=== PATIENT | male | born 1950 | race Caucasian/White ===

== ENCOUNTER 2024-07-19 13:04 | Outpatient (CLI) | payer MEDICARE, OTHER, SELFPAY ==
--- NOTE | 2024-07-19 13:15 | ECHO_ITS ---
Patient Info Name: Alexx Lucia Age: 73 years : 1950 Gender: Male Ht: 75 in Wt: 270 lbs BSA: 2.58 m2 HR: 75 bpm BP: 141 / 70 mmHg Technical Quality: Poor Exam Date: 07/19/2024 1:21 PM Exam Location: Echo Lab Patient Status: Outpatient Admit Date: 07/19/2024 Staff Ordering Physician: Khanh Morton DO Welder/Installer: Robert Stewart RDCS Attending Provider: Khanh Morton DO Referring Physician: Praveen ALFONSO; Exam Type: CA echo dop color flow w con Study Info Indications - LOCALIZED EDEMA Complete two-dimensional, color flow and Doppler transthoracic echocardiogram is performed with contrast to opacify the left ventricle and to improve the deliniation of the left ventricle endocardial borders. Contrast/Agitated Saline Contrast/Ag. Saline: Definity Amount: 2.00 ml Existing IV Access: Yes Reason for Poor Study: poor echocardiographic windows Summary 1. Technically suboptimal study due to poor sonographic images. 2. Definity contrast administered improved wall motion interpretation. 3. Left ventricular chamber dimension is normal. 4. Left ventricular systolic function is normal, estimated at 60-65%. 5. There is mild concentric increased left ventricular wall thickness. 6. The left ventricular diastolic function is grade I diastolic dysfunction. 7. E/e' 6 is not elevated. 8. The aortic root size at the sinus of Valsalva is borderline dilated at 4.0 cm. Left Ventricle E/e' 6 is not elevated. Definity contrast administered improved wall motion interpretation. Technically suboptimal study due to poor sonographic images. Left ventricular chamber dimension is normal. Left ventricular systolic function is normal, estimated at 60-65%. There is mild concentric increased left ventricular wall thickness. The left ventricular diastolic function is grade I diastolic dysfunction. Right Ventricle Right ventricular systolic function is normal and with normal TAPSE 2.3 cm. Right ventricular chamber dimension is normal. Left Atria Left atrial chamber dimension is normal. Right Atria Right atrial chamber dimension is normal. Aortic Valve The aortic valve is trileaflet. There is no aortic valve stenosis. There is no aortic valve regurgitation. Pulmonic Valve There is no pulmonic regurgitation. Mitral Valve There is no mitral valve stenosis. There is no mitral valve regurgitation. Tricuspid Valve There is no tricuspid valve regurgitation. Pericardium/Pleural There is no pericardial effusion. Inferior Vena Cava Normal inferior vena cava with >50% collapse upon inspiration consistent with normal right atrial pressure, 5 mmHg. Aorta The aortic root size at the sinus of Valsalva is borderline dilated at 4.0 cm. Left Ventricular Outflow Tract Name Value Normal LVOT 2D LVOT Diameter 2.32 cm LVOT Doppler LVOT Peak Gradient 5 mmHg LVOT Mean Gradient 3 mmHg LVOT VTI 22.30 cm LVOT VTI/AV VTI Ratio 0.76 LVOT Stroke Volume 94.23 ml LVOT CO 5.98 l/min LVOT CI 2.32 L/min/m2 Pulmonic Valve Name Value Normal RVOT Doppler RVOT Peak Gradient 4 mmHg PV Doppler PV Peak Gradient 4 mmHg Mitral Valve Name Value Normal MV Doppler MV Decel Daggett 398.78 cm/s2 MV PHT 0 s MV Area (PHT) 6.13 cm2 4.00-5.00 MV Diastolic Function MV E Peak Velocity 49.39 cm/s MV A Peak Velocity 72.95 cm/s MV E/A 0.68 MV Decel Time 0 s MV Annular TDI MV E/e' (Septal) 6.43 <=8.00 MV E/e' (Lateral) 6.08 <=8.00 MV E/e' (Average) 6.26 Tricuspid Valve Name Value Normal Estimated PAP/RSVP RA Pressure 5 mmHg <=5 Aorta Name Value Normal Ascending Aorta Ao Root Diameter (MM) 3.29 cm Ao Root Diam Index (MM) 1.28 cm/m2 Aortic Valve Name Value Normal AV Doppler AV Peak Velocity 136.22 cm/s AV Peak Gradient 7 mmHg AV Mean Gradient 5 mmHg AV VTI 29.47 cm AV Area (Cont Eq VTI) 3.20 cm2 >=3.00 AV Area (Cont Eq Carrington) 3.37 cm2 AV Regurgitation 2D LVOT Area 4.23 cm2 Ventricles Name Value Normal LV Dimensions 2D/MM IVS Diastolic Thickness (2D) 1.72 cm 0.60-1.00 LVID Diastole (2D) 4.94 cm 4.20-5.80 LVIW Diastolic Thickness (2D) 2.01 cm 0.60-1.00 LVID Systole (2D) 3.45 cm 2.50-4.00 LVOT Diameter 2.32 cm LV Mass (2D Cubed) 443.56 g 88.00-224.00 LV Mass Index (2D Cubed) 0.02 g/cm2 0.00-0.01 Relative Wall Thickness (2D) 0.82 LV Fractional Shortening/Ejection Fraction 2D/MM LV Fractional Shortening (2D) 30 % 25-43 LV EF (2D Teicholz) 57 % 52-72 LV Diastolic Volume (4C MOD) 85.82 ml LV EF (4C MOD) 51 % LV Diastolic Volume (2C MOD) 67.14 ml LV EF (2C MOD) 69 % LV Diastolic Volume (BP MOD) 77.87 ml 62.00-150.00 LV Diastolic Volume Index (BP MOD) 0.03 l/m2 0.03-0.07 LV Systolic Volume (BP MOD) 32.03 ml 21.00-61.00 LV Systolic Volume Index (BP MOD) 0.01 l/m2 0.01-0.03 LV EF (BP MOD) 59 % 52-72 LV Diastolic Length (4C) 7.32 cm LV Systolic Length (4C) 6.37 cm LV Stroke Volume (4C MOD) 43.51 ml Atria Name Value Normal LA Dimensions LA Dimension (MM) 4.32 cm 3.00-4.10 LA Volume (4C A-L) 40.77 ml LA Volume (BP A-L) 43.34 ml RA Dimensions RA Area (4C) 26.72 cm2 <=18.00 Report Signatures
--- OUTSIDE RECORDS SUMMARY | 2024-07-19 13:53 | XMS_ITS | Referral Summary ---
Author Organization [facility] Address [address] [place] [address] Care Team Providers Care Chief Catalyst Operator Name Role Phone Laure Taveras MD Primary Care Provider + Allergies No known active allergies Medications simvastatin (ZOCOR) 40 mg tablet Take 1 tablet (40 mg total) by mouth daily Active rivaroxaban (XARELTO) 20 mg tablet Take 1 tablet (20 mg total) by mouth daily Active finasteride (PROSCAR) 5 mg tablet Take 1 tablet (5 mg total) by mouth daily Active metFORMIN (GLUCOPHAGE) 500 mg tablet Take 1 tablet (500 mg total) by mouth daily with breakfast Active losartan (COZAAR) 25 mg tablet Take 1 tablet (25 mg total) by mouth daily 90 tablet 3 4 12/20/19 25 Active Active Problems Problem Noted Date Diagnosed Date Gross hematuria 07/25/2019 CRD (chronic renal disease), stage II 07/25/2019 Social History Tobacco Use Types Packs/Day Years Used Date Smoking Tobacco: Never Assessed Smokeless Tobacco: Never Alcohol Use Standard Drinks/Week Comments Yes 0 (1 standard drink = 0.6 oz pur e alcohol) socially AUDIT-C Answer Date Recorded Q1: How often do you have a drink containing alc ohol? 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 Gender Identity Male 11/11/2020 6:30 AM CDT Sexual Orientation Straight 11/11/2020 6: 30 AM CDT Last Filed Vital Signs Vital Sign Reading Time Taken Comments Blood Pressure 130/76 11/25/2022 9:26 AM CDT Pulse 67 11/25/2022 9:26 AM CDT Temperature 36.3 ??C (97.3 ??F) 11/25/2022 9:26 AM CD T Respiratory Rate - - Oxygen Saturation 92% 02/05/2016 10:56 AM CDT Inhaled Oxygen Concentration - - Weight 116.1 kg (256 lb) 11/25/2022 9:26 AM CDT Height 190.5 cm (6' 3 ) 11/25/2022 9:26 AM CDT Body Mass Index 32 11/25/2022 9:26 AM CDT Plan of Treatment Not on file Procedures Procedure Name Priority Date/Time Associated Diagnosis Comments HEPATITIS C ANTIBODY Routine 09/19/2020 CT ABDOMEN WO CONTRAST Schedule Routine, Read Routine (OP Routine) 07/30/2019 from Last 3 Months or Most Recently Relevant to Health Maintenance Results * Hepatitis C antibody (09/19/2020) Blood specimen (specimen) Historical Provider LAB MICROBIOLOGY - GENERA L ORDERABLES Final Result * CT Abdomen WO Contrast (07/30/2019) Anatomical Region Laterality Modality Body N/A Computed Tomogra phy Historical Provider IMG CT PROCEDURES Final R esult from Last 3 Months or Most Recently Relevant to Health Maintenance Insurance MEDICARE FOR LIFE Care Teams Chief Catalyst Operator Relationship Specialty Start Date End Date Laure Taveras MD PCP - General Family Medicine 07/04/19
--- OUTSIDE RECORDS SUMMARY | 2024-07-19 13:53 | XMS_ITS | Clinical Summary ---
Author Organization [facility] Address [address] [place] [address]. [place] [address] [place] [address] Care Team Providers Care Disc Pad Plate Filler Name Role Phone Dorota Cali MD Primary Care Provider [phone] Allergies No known active allergies Medications rivaroxaban 20 MG Tab tablet Take 1 tablet (20 mg total) by mouth daily with breakfast. 09/23/2020 Active finasteride 5 MG tablet Take 1 tablet (5 mg total) by mouth daily. Active metFORMIN ER 500 MG 24 hr tablet Take 1 tablet (500 mg total) by mouth daily with breakfast. Active atorvastatin (LIPITOR) 40 MG tablet 07/05/2022 Active losartan (COZAAR) 25 MG tablet Take 1 tablet (25 mg total) by mouth daily. 12/20/2023 Active Active Problems Problem Noted Date Diagnosed Date Colon cancer screening 08/26/2022 Overview (08/26/2022): Added automatically from request for surgery [id number] Numbness in both legs 07/21/2021 Gross hematuria 07/25/2019 CRD (chronic renal disease), stage II 07/25/2019 Immunizations Name Administration Dates Next Due Influenza (Generic) 04/15/2020 Influenza Adult (Generic) 05/27/2021,04/22/2018 PFIZER COVID-19 (ORIGINAL FO RMULATION, PURPLE CAP) mRNA, LNP-S, PF, 30 MCG/0.3 ML DOSE 10/14/2020 Pneumococcal (Pneumovax 23) 09/18/2020 Pneumococcal (Prevnar 20) 04/28/2022 Polio Opv (Generic) 05/26/1972 Shingrix 12/30/2020,09/18/2020 Td (TDVAX) 09/18/2020 Tdap (Generic) 01/28/2006 Family History Medical History Relation Comments Cancer Father prostate Tuberculosis Mother Relation Status Comments Father Maternal Grandfather Maternal Grandmother Mother Paternal Grandfather Paternal Grandmother Social History Tobacco Use Types Packs/Day Years Used Date Smoking Tobacco: Never Smokeless Tobacco: Never Tobacco Cessation:Counseling Given: No Comments:na Alcohol Use Standard Drinks/Week Comments Not Currently 0 (1 standard drink = 0.6 oz pur e alcohol) two drinks per month PHQ-2 Answer Date Recorded Patient Health Questionnaire-2 Score 0 01/10/2024 Education Answer Date Recorded What is the highest level of school you have completed or the highest degree you have received? Master's degree (e.g., MA, MS, Brett, MEd, POLISHING MACHINE OPERATOR HELPER, JERAMY) 08/11/2022 Sex and Gender Information Value Date Recorded Sex Assigned at Male 11/23/2021 9:44 AM CDT Legal Sex Male 5:48 PM CDT Gender Identity Male 11/23/2021 9:44 AM CDT Sexual Orientation Straight 11/23/2021 9: 44 AM CDT Last Filed Vital Signs Vital Sign Reading Time Taken Comments Blood Pressure 128/71 01/10/2024 8:06 AM CDT Pulse 77 01/10/2024 8:06 AM CDT Temperature 36.8 ??C (98.3 ??F) 01/10/2024 8:06 AM CD T Respiratory Rate 14 03/31/2023 8:13 AM CDT Oxygen Saturation 94% 01/10/2024 8:06 AM CDT Inhaled Oxygen Concentration - - Weight 123.3 kg (271 lb 14.4 oz) 01/10/2024 8:06 AM CDT Height 190.5 cm (6' 3 ) 01/10/2024 8:06 AM CDT Body Mass Index 33.99 01/10/2024 8:06 AM CDT Plan of Treatment Upcoming Encounters Date Type Department Care Team (Late st Contact Info) Description 10/15/2024 8:40 AM CDT Office Visit [facility] Multispecialty Care - [facility] [address] [facility], [address] [place] [id number] Lai Scott MD [address] [place] [address] Health Maintenance Due Date Last Done Comments Hepatitis C 11/04/1968 Annual Medicare Wellness Visit 2014 COVID-19 Vaccine (2023-2 5 season) 2024 06/05/2021, 11/05/2020, 10/14/2020 Influenza Adult (#1) 2024 05/27/2021, 04/15/2020, 04/22/2018 PHQ-2 (Physician [place]) 06/20/2024 01/10/2024 RSV Immunization or 60+ Years (1 - 1-dose 75+ series) 2024 PHQ-2 (Physician [place]) 01/09/2025 01/10/2024 DTaP, Tdap and Td Vaccines ( 3 - Td or Tdap) 09/18/2030 09/18/2020, 01/28/2006 Colorectal Cancer Screening Colonoscopy (10 Years) 09/09/2032 09/09/2022, 09/09/2022 Zoster Vaccines Completed 12/30/2020, 09/18/2020 Pneumococcal Vaccine: 65+ Years Completed 04/28/2022, 09/18/2020 Meningococcal B Vaccine Aged Out No l onger eligible based on patient's age to complete this topic Meningococcal Vaccine Aged Out No harrison breanna eligible based on patient's age to complete this topic RSV Immunizations Under 20 Months Aged Out No longer eligible b ased on patient's age to complete this topic Procedures Procedure Name Priority Date/Time Associated Diagnosis Comments COLONOSCOPY Routine 09/09/2022 7:19 AM CDT from Last 3 Months or Most Recently Relevant to Health Maintenance Insurance [employer] MEDICARE Care Teams Disc Pad Plate Filler Relationship Specialty Start Date End Date Dorota Cali MD PCP - General FAMILY PRACTICE 08/25/21
--- OUTSIDE RECORDS SUMMARY | 2024-07-19 13:53 | XMS_ITS | Encounter Summary ---
Author Organization [facility] Address [address] [place] [address]. [place] [address] [place] [address] Care Team Providers Care Building Guard Deputy Sheriff Name Role Phone Dorota Cali MD Primary Care Provider [phone] Encounter Details Date Type Department Care Team (Late Contact Info) Description [address] [facility] Multispecialty Care - [address], [address] [place] [address] [employer], [facility] Provider Results Social History Tobacco Use Types Packs/Day Years Used Date Smoking Tobacco: Never Smokeless Tobacco: Never Alcohol Use Standard Drinks/Week Comments Yes 0 (1 standard drink = 0.6 oz pur e alcohol) two drinks per month PHQ-2 Answer Date Recorded PHQ-2 Score - If the patient scores above 3, please move on to questions 3-9 0 11/02/2021 Sex and Gender Information Value Date Recorded Sex Assigned at Male 11/23/2021 9:44 AM CDT Legal Sex Male 5:48 PM CDT Gender Identity Male 11/23/2021 9:44 AM CDT Sexual Orientation Straight 11/23/2021 9: 44 AM CDT COVID-19 Exposure Response Date Recorded In the last 10 days, have yo u been in contact with someone who was confirmed or suspected to have Coronavirus/COVID-19? No / Unsure 11/02/2021 1:31 PM CDT documented as of this encounter Plan of Treatment Upcoming Encounters Date Type Department Care Team (Late Contact Info) Description 10/15/2024 8:40 AM CDT Office Visit [facility]ialty Care - [facility] [address] [facility], [address] [place] [address] Lai Scott MD [address] [place] [address] documented as of this encounter Visit Diagnoses Not on filedocumented in this encounter Care Teams Building Guard Deputy Sheriff Relationship Specialty Start Date End Date Dorota Cali MD PCP - General FAMILY PRACTICE 08/25/21 documented as of this encounter
--- OUTSIDE RECORDS SUMMARY | 2024-07-19 13:53 | XMS_ITS | Encounter Summary ---
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 us Historical Provider Final Res ult documented in this encounter Visit Diagnoses Not on filedocumented in this encounter Care Teams Automotive Service Advisor Relationship Specialty Start Date End Date Laure Taveras MD PCP - General Family Medicine 07/04/19 documented as of this encounter
--- OUTSIDE RECORDS SUMMARY | 2024-07-19 13:53 | XMS_ITS | Continuity of Care Document ---
Author Organization [facility] Address [address] [place] [phone] Phone Care Team Providers Care Bender Machine Operator Name Role Phone Efraín Serrano MD Unavailable Unavailable Procedures Procedure Date OFFICE CONSULTATION OFFICE CONSULTATION OPHTHALMIC BIOMETRY LT OPHTHALMIC BIOMETRY OPHTH DX IMAGING POST SEG OPHTH DX IMAGING POST SEG OPHTHALMIC BIOMETRY RT Advance Directives Directive Yes / No Effective Date File Name No Information Encounters Encounter Description Practice Location Reason(s) For Visit Diagnoses Date Provider Providers Copied on Encounter OFFICE CONSULTATION [facility], [address] [place] [address], [address] [place] [address], tel:[phone] OPH CONSULT PHIL LIANG No Information [address] Zach Efraín. [address] [place] [address], [facility] [address], [place], [facility], . tel:[phone] [facility], [address] [place] [address], [address] [place] [address], tel:[phone] OPH CONSULT PHIL LIANG No Information [address] Zach Efraín. [address] [place] [address], [place], [facility], . tel:[phone] Family History Family Member Type Diagnosis Age At Onset No Information Payers Payer name Insurance type Covered republican ID Authoriza tion(s) For Life CI [id number] Social History Type Description Quantity Date Captured Comments Sex Male Smoking Status No Information Chief Complaint And Reason For Visit No Information Plan Of Treatment Date Type Action Status No Information History Of Present Illness Encounter Date Complaint History Of Prese nt Illness No Information Instructions Date Instruction Additional Infor mation No Information Assessments Type Assessment Date No Information
--- OUTSIDE RECORDS SUMMARY | 2024-07-19 13:53 | XMS_ITS | Clinical Summary ---
Author Organization [facility] Address [address] [place] [address] Care Team Providers Care Teacher Of The Deaf Name Role Phone Laure Taveras MD Primary [...] CRD (chronic renal disease), stage II 07/25/2019 Surgical History Surgery Date Site/Laterality Comments VASECTOMY Medical History Medical History Date Comments Elevated serum creatinine Hyperlipidemia DVT (deep venous thrombosis) (CMS/HCC) (HCC) 200 , Family History Medical History Relation Name Comments Prostate cancer Father Glaucoma Mother Relation Name Status Comments Father Mother Social History Tobacco Use Types Packs/Day Years [...] on file Legal 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 Gender Identity Male 11/11/2020 6:30 AM CDT Sexual Orientation Straight 11/11/2020 6: 30 AM CDT Obstetrics History Last Filed Vital Signs Vital Sign Reading [...] 11/25/2022 9:26 AM CDT Plan of Treatment Health Maintenance Due Date Last Done Comments Colon Cancer Screening-Colonoscopy 1950 Depression Screening 1950 Fall Risk Assessment 1950 Prostate Cancer Screening-PSA 1950 DTaP/Tdap/Td Vaccine (1 - Tdap) 1960 Hepatitis B Screening 11/04/1967 Zoster Vaccine (1 of 2) 11/04/1999 Well Visit 65+ 2014 Pneumococcal vaccine 65+ (2 of 2 - PCV) 09/18/2021 0 09/18/2020 Covid-19 Vaccine (2 - 2023- season) 2024 Influenza Vaccine (#1) 2024 Abdominal Aortic Aneurysm (AAA) Screen Completed Hepatitis C Screening Completed 09/19/2020 Procedures Procedure Name Priority Date/Time Associated Diagnosis Comments HEPATITIS C ANTIBODY Routine 09/19/2020 CT ABDOMEN WO CONTRAST Schedule Routine, Read Routine (OP Routine) 07/30/2019 from Last 3 Months or Most Recently Relevant to Health Maintenance Results * Hepatitis C antibody (09/19/2020) Blood specimen (specimen) us Historical Provider LAB MICROBIOLOGY - GENERA L ORDERABLES Final Result * CT Abdomen WO Contrast (07/30/2019) Anatomical Region Laterality Modality Body N/A Computed Tomogra phy us Historical Provider IMG CT PROCEDURES Final R esult from Last 3 Months or Most Recently Relevant to Health Maintenance Insurance MEDICARE enrich-in FOR LIFE Care Teams Teacher Of The Deaf Relationship Specialty Start Date End Date Laure Taveras MD PCP - General Family Medicine 07/04/19
[2024-07-19] MEDS: PERFLUTREN LIPID MICROSPHERES 1.5 ML VIAL DILUTED TO 10 ML TOTAL VOLUME IV PUSH (13:55)
--- NOTE | 2024-07-19 14:27 | IVDEFINITY ---
Prior to administration of IV Definity the patient was educated on the risks and benefits of the imaging enhancing agent including potential adverse side effects. The patient verbalized understanding. Allergies were verified. No exclusion criteria were identified and at least one of the following inclusion criteria were met: 1) physician request, 2) patient technically difficult to image (per the [place] Society of Echocardiography guidelines of two or more segments not discernable within the apical view), or 3) questionable left ventricular function. ?
== END 2024-07-19 13:05 | disposition home or self-care (01) ==
LOC: ANHCARD 13:07
PROVIDERS: Visit Provider Internal Medicine Cardiovascular Disease
DX: R60.0 Localized edema (principal)
CPT/HCPCS: C8929; Q9957

== ENCOUNTER 2024-10-02 09:28 | Outpatient (CLI) | payer MEDICARE, OTHER, SELFPAY ==
--- NOTE | ~2024-10-02 | US_ITS ---
EXAMINATION: US art doppler w press LE DATE: 10/03/2024 08:01 CDT INDICATION: Peripheral vascular disease. TECHNIQUE: Segmental pressures and plethysmographic and Doppler waveforms of the brachial and lower e xtremity arteries were obtained. COMPARISON: None. FINDINGS: Right and left brachial artery pressures of 131 mm Hg and 128 mm Hg, respectively, are concordant (no rmal difference <= 30 mmHg). The right high-thigh pressure index is 1.24 (normal > 1.2). The right ankle-brachial index (CARLA) is 1 .11 (normal >= 0.9-1.0). The right great toe-brachial index (TBI) is 0.52 (normal >= 0.60). The right lower extremity segmental pressure gradients are increased below the ankle (normal gradients <= 20-3 0 mmHg between adjacent levels on the same leg or the same levels on the two legs). Arterial Doppler waveforms are biphasic in the right lower extremity arteries with the exception of monophasic flow in the posterior tibial artery.. The left high-thigh pressure index is 1.27. The left CARLA is 1.19. The left TBI is 0.37. The left lowe r extremity segmental pressure gradients are increased below the ankle. Arterial Doppler waveforms ar e biphasic in the left common femoral artery and monophasic in the remainder of the left lower extrem ity arteries.. IMPRESSION: 1. Diminished bilateral toe brachial indices consistent with peripheral arterial disease, left greate r than right. Reviewed, dictated and finalized at location B. IMPRESSION: 1. Diminished bilateral toe brachial indices consistent with peripheral arteria l disease, left greater than right.
--- OUTSIDE RECORDS SUMMARY | 2024-10-02 10:03 | XMS_ITS | Clinical Summary ---
Author Organization [facility] Address [address] [place] [address] Care Team Providers Care Division Sales Manager Name Role Phone Dorota Cali MD Primary Care Provider [phone] Allergies No known active allergies Medications rivaroxaban [...] (08/26/2022): Added automatically from request for surgery [id number] Numbness in both legs 07/21/2021 Gross hematuria 07/25/2019 CRD (chronic renal disease), stage II 07/25/2019 Immunizations Immunization Administration Dates Next Due Influenza (Generic) 04/15/2020 [...] Master's degree (e.g., MA, MS, Brett, MEd, ETHOLOGIST, JERAMY) 08/11/2022 Sex and Gender Information Value Date Recorded Sex Assigned at Male 11/23/2021 9:44 AM CDT Legal Sex Male 5:48 PM CDT Gender Identity Male 11/23/2021 9:44 AM CDT Sexual Orientation Straight 11/23/2021 9: 44 AM CDT Last Filed Vital Signs Vital Sign Reading Time Taken Comments Blood Pressure 128/71 01/10/2024 8:06 AM CDT Pulse 77 01/10/2024 8:06 AM CDT Temperature 36.8 C (98.3 F) 01/10/2024 8:06 AM CDT Respiratory Rate 14 03/31/2023 8:13 AM CDT [...] Description 10/15/2024 8:40 AM CDT Office Visit [facility]ialty Care [facility] [address] [facility], [address] [place] [id number] Lai Scott MD [address] [place] [address] Health Maintenance Due Date Last Done Comments Hepatitis C 11/04/1968 Annual Medicare Wellness Visit 2014 COVID-19 Vaccine (4 - 2023-2 5 season) 2024 06/05/2021, 11/05/2020, 10/14/2020 PHQ-2 (Physician [place]) 06/20/2024 01/10/2024 RSV Immunization or 60+ Years (1 - 1-dose 75+ series) 2024 DTaP, Tdap and Td Vaccines ( 3 - Td or Tdap) 09/18/2030 09/18/2020, 01/28/2006 Colorectal Cancer Screening Colonoscopy (10 Years) 09/09/2032 09/09/2022, 09/09/2022 Zoster Vaccines Completed 12/30/2020, 09/18/2020 Pneumococcal Vaccine: 50+ Years Completed 04/28/2022, 09/18/2020 Meningococcal B Vaccine [...] Most Recently Relevant to Health Maintenance Insurance [employer] Care Teams Division Sales Manager Relationship Specialty Start Date End Date Dorota Cali MD PCP - General FAMILY PRACTICE 08/25/21
--- OUTSIDE RECORDS SUMMARY | 2024-10-02 10:03 | XMS_ITS | Continuity of Care Document ---
Author Organization [facility] Address [address] [place] [id number] Phone Care Team Providers Care Energy Technician Name Role Phone Efraín Serrano MD Unavailable [...] Copied on Encounter OFFICE CONSULTATION [facility], [address] [place] [address], [address] [place] [address], tel:[phone] OPH CONSULT PHIL LIANG No Information [address] Zach Efraín. [address] [place] [address], [facility] [address], [place], [facility], . tel:[phone] [facility], [address] [place] [address], [address] [place] [address], tel:[phone] OPH CONSULT PHIL LIANG No Information 3200 [address] Zach Efraín. [address] [place] [address], [place], [place], [facility], [place]. tel:[phone] Family History Family Member Type Diagnosis Age At Onset No Information Payers Payer name Insurance type Covered constitution party ID Authoriza tion(s) For Life CI [id number] Social History Type Description Quantity Date Captured Comments Sex Male Smoking Status No Information Chief Complaint And Reason For Visit No Information Reason For Referral Reason For Referral No Information History Of Present Illness Encounter Date Complaint History Of Prese nt Illness No Information Functional Status Date Functional Assessmen t No Information Instructions Date Instruction Additional Infor mation No Information Assessments Type Assessment Date No Information Patient Care Teams Name Effective Dates (start - stop) Status Members No Information
--- OUTSIDE RECORDS SUMMARY | 2024-10-02 10:03 | XMS_ITS | Encounter Summary ---
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
--- OUTSIDE RECORDS SUMMARY | 2024-10-02 10:03 | XMS_ITS | Clinical Summary ---
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 [employer] Gender Identity Male 11/11/2020 6:30 AM CDT Sexual Orientation Straight 11/11/2020 6: 30 AM CDT Obstetrics History Last Filed Vital Signs Vital Sign Reading Time Taken Comments Blood Pressure 130/76 11/25/2022 9:26 AM CDT Pulse 67 11/25/2022 9:26 AM CDT Temperature 36.3 C (97.3 F) 11/25/2022 9:26 AM CDT Respiratory Rate - - Oxygen Saturation 92% [...] 09/18/2021 0 09/18/2020 Covid-19 Vaccine (2 - season) 2024 Influenza Vaccine (#1) 2024 Abdominal [...] Recently Relevant to Health Maintenance Insurance MEDICARE [employer] Care Teams Retail Cosmetics Sales Counter Manager Relationship Specialty Start Date End Date Laure Taveras MD PCP - General Family Medicine 07/04/19
--- OUTSIDE RECORDS SUMMARY | 2024-10-02 10:03 | XMS_ITS | Referral Summary ---
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
--- OUTSIDE RECORDS SUMMARY | 2024-10-02 10:03 | XMS_ITS | Continuity of Care Document ---
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 It does not include entries that were removed or entered in error. 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 Medication Details Route Status Patient Instructions Prescription Expires Prescription Number Last Dispense Date Ordering Provider Order Date Order Qty Source amoxicillin 500 mg capsule 2000 mg, Oral, # 4 EA, 0 total refill(s ), Hard Stop Oral (given by mouth) Discont inued 04/26/2024 3 2023 4.0 Ambulat ory Pharmac y apixaban 5 mg oral tablet See Instruct ions, Take two tablets by mouth twice daily for 7 days, then take one tablet by mouth twice daily, # 74 tab(s), 3 total refill(s ), Maintena nce, Initial dosing for treatmen t of DVT/PE (74 tabs = 30 day supply) no refills! , Pharmacy : [facility] Ordered 5 2023 74.0 6130C-A f-C-375 [facility] atorvastati n 40 mg oral tablet 1 tab(s), Oral, Daily, Take on tab daily for choleste rol, # 90 tab(s), 3 total refill(s ), Hard Stop, Pharmacy : [facility] Oral (given by mouth) Complet ed 04/26/2024 4 2023 90.0 6130C-A f-C[facility] atorvastati n 40 mg oral tablet 1 tab(s), Oral, Daily, Take on tab daily for choleste rol, # 90 tab(s), 3 total refill(s ), Mainrichaa lae, Pharmacy : [facility] Oral (given by mouth) Ordered 5 2023 90.0 6130C-A f-C-[facility] [place] atorvastati n 40 mg tablet See Instruct ions, # 90 EA, 1 total refill(s ), Acute Complet ed 04/19/2023 3 2022 90.0 Ambulat ory Pharmac y chlorhexidi ne oral rinse 0.12% liquid [473mL] See Instruct ions, 0, # 473 mL, 0 total refill(s ), Hard Stop Complet ed 02/01/2024 3 2023 473.0 Ambulat ory Pharmac y Clenpiq 10 mg-3.5 g-12 g/160 mL oral liquid 320 unknown unit, 0 total refill(s ), Soft Stop Ordered 2022 6130[facility]A f-C[facility] Clenpiq oral liquid 1 Unknown, ORAL, 1 Refill(s ), 0 total refill(s ), Soft Stop Discont inued 04/26/20242023 6130[facility] f-C-[facility] clobetasol 0.05% topical ointment APPLY TO AFFECTED AREAS TWICE DAILY, THEN WEAN-OFF . AVOID APPLICAT ION ON FACE AND GROIN., # 60 g, 3 total refill(s ), Acute Complet ed 08/03/2023 3 2023 60.0 Ambulat ory Pharmac y finasteride 5 mg tablet 5 mg, Oral, Daily, # 60 EA, 0 total refill(s ), Hard Stop Oral (given by mouth) Complet ed 12/22/2023 3 2023 60.0 Ambulat ory Pharmac y finasteride 5 mg tablet 5 mg, Oral, Daily, # 90 EA, 3 total refill(s ), Hard Stop Oral (given by mouth) Complet ed 02/14/2024 4 2023 90.0 Ambulat ory Pharmac y finasteride 5 mg tablet 5 mg, Oral, Daily, # 90 EA, 3 total refill(s ), Hard Stop Oral (given by mouth) Ordered 02/20/2025 5 2024 90.0 Ambulat ory Pharmac y losartan 25 mg tablet 25 mg, Oral, Daily, # 90 EA, 3 total refill(s ), Hard Stop Oral (given by mouth) Complet ed 12/20/2023 4 2023 90.0 Ambulat ory Pharmac y losartan 25 mg tablet 25 mg, Oral, Daily, # 90 EA, 3 total refill(s ), Hard Stop Oral (given by mouth) Ordered 12/19/2024 5 2024 90.0 Ambulat ory Pharmac y MetFORMIN (Eqv-Fortam et) 500 mg oral tablet, extended release 1 tab(s), Oral, Daily, # 90 EA, 3 total refill(s ), Hard Stop, Pharmacy : [facility] Oral (given by mouth) Complet ed 04/05/2024 4 2023 90.0 6130C-A f-C-375 Th [facility] MetFORMIN (Eqv-Fortam et) 500 mg oral tablet, extended release 1 tab(s), Oral, Daily, # 90 tab(s), 3 total refill(s ), Maintena lae, Pharmacy : [facility] Oral (given by mouth) Ordered 5 2023 90.0 6130C-A f-C-375 Th [facility] MetFORMIN (Eqv-Fortam et) 500 mg oral tablet, extended release 1 tab(s), Oral, Daily, # 30 tab(s), 0 total refill(s ), Hard Stop, Pharmacy : [facility] Oral (given by mouth) Complet ed 04/26/2024 4 2023 30.0 6130C[facility]A f[facility] MetFORMIN (Eqv-Fortam et) 500 mg oral tablet, extended release 1 tab(s), Oral, Daily, # 30 EA, 0 total refill(s ), Maintena nce, Pharmacy : [facility] Oral (given by mouth) Discont inued 02/03/2023 3 2022 30.0 6130C-A f-C-375 [facility] Periogard 0.12% (AF) liquid [473mL] See Instruct ions, # 473 mL, 0 total refill(s ), Hard Stop Complet ed 07/12/2024 4 2024 473.0 Ambulat ory Pharmac y rivaroxaban 20 mg oral tablet 1 tab(s), Oral, every evening, with evening meal, # 90 tab(s), 3 total refill(s ), Maintena nce, with evening meal, Pharmacy : [facility] Oral (given by mouth) Cancele d 05/23/2024 4 2023 90.0 6130C-A f-C-375 [facility] rivaroxaban 20 mg oral tablet 1 tab(s), Oral, every evening, with evening meal, # 90 tab(s), 3 total refill(s ), Hard Stop, with evening meal, Pharmacy : [facility] Oral (given by mouth) Complet ed 04/26/2024 4 2023 90.0 6130C-A f-C-375 [facility] triamcinolo ne 0.1% ointment [454g] See dose instruct ions in comments , # 454 g, 3 total refill(s ), Acute Complet ed 02/04/2023 3 2022 454.0 Ambulat ory Pharmac y warfarin 2.5 mg oral tablet 1 tab(s), Oral, Daily, Use as directed by [facility] or prescrib ing provider ., # 30 tab(s), 0 total refill(s ), [facility], Pharmacy : [facility] Oral (given by mouth) Discont inued 05/16/2024 4 2023 30.0 6130C-A f-C-[facility] [place] warfarin 3 mg oral tablet 1 tab(s), Oral, Daily, Use as directed by [facility] Clinic or prescrib ing provider , # 30 tab(s), 0 total refill(s ), [facility], Pharmacy : [facility] Oral (given by mouth) Discont inued 05/22/2024 4 2023 30.0 6130C-A f-C-[facility] [place] warfarin 4 mg oral tablet 1 tab(s), Oral, Daily, Use as directed by [facility]madin Clinic or prescrib ing provider , # 30 tab(s), 0 total refill(s ), [facility], Pharmacy : [facility] Oral (given by mouth) Discont inued 06/18/2024 4 2023 30.0 6130C-A f-C-375 [facility] [place] Xarelto 20 mg tablet See dose instruct ions in comments , # 90 EA, 2 total refill(s ), Acute Complet ed 04/19/2023 3 2022 90.0 Ambulat ory Pharmac y Immunizations Combined list of available immunizations from the Department of Defense and Veterans Affairs facilities. 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 Comments Source influenza virus vaccine, inactivated 2022 ETHANJPOCKLIN GTON Shoul smooth, right (delt oid) [id number] 197 sanofi pasteur complet ed influenza virus vaccine, inactivat ed 04/06/23 Given 5C-3 [facility] pneumococcal 20-valent conjugate vaccine 2021 ETHANJPOCKLIN GTON [id number] complet ed Result Comment: Route: Intramusc ular(IM) Manufactu rer: Pfizer, Inc (PFR) 0055C-[facility] COVID Vaccine Pfizer 2020 zzRig ht Arm [id number] 208 PFIZER complet ed COVID Vaccine Pfizer 06/05/21 Given Ambulat ory Pharmac y influenza, injectable, quadrivalent- pf 2020 zzLef t Arm [id number] 150 GlaxoSmithKli ne complet ed influenza , injectabl e, quadrival ent-pf 05/27/21 Given Ambulat ory Pharmac y zoster vaccine, inactivated 2020 zzRig ht Arm [id number] 187 GlaxoSmithKli ne complet ed zoster vaccine, inactivat ed 12/30/20 Given Ambulat ory Pharmac y COVID Vaccine Pfizer 2020 TRANSCR IBED 208 PFIZER complet ed COVID Vaccine Pfizer 11/05/20 Given Ambulat ory Pharmac y COVID Vaccine Pfizer 2020 TRANSCR IBED 208 PFIZER complet ed COVID Vaccine Pfizer 10/14/20 Given Ambulat ory Pharmac y pneumococcal polysaccharid e, 23 valent 2020 zzRig ht Arm [id number] [employer] complet ed pneumococ jayna polysacch aride, 23 valent 09/18/20 Given Ambulat ory Pharmac y tetanus-dipht h toxoids (Td) adult/adol 2020 zzRig ht Arm [id number] sanofi pasteur complet ed tetanus-d iphth toxoids (Td) adult/ado l 09/18/20 Given Ambulat ory Pharmac y zoster vaccine, inactivated 2020 zzLef t Arm [id number] 187 GlaxoSmithKli ne complet ed zoster vaccine, inactivat ed 09/18/20 Given Ambulat ory Pharmac y influenza virus vaccine, inactivated 2019 zzRig ht Arm [id number] 88 Seqirus complet ed influenza virus vaccine, inactivat ed 04/15/20 Given Ambulat ory Pharmac y influenza, injectable, quadrivalent- pf 2017 zzLef t Arm [id number] 150 GlaxoSmithKli ne complet ed influenza , injectabl e, quadrival ent-pf 04/22/18 Given Ambulat ory Pharmac y tetanus, diphtheria, acellular pertu is 2005 zzLef t Arm [id number] 115 complet ed tetanus, diphtheri a, acellular pertussis 01/28/06 Given Ambulat ory Pharmac y tuberculin purified protein derivative 2000 zzLef t Arm [id number] 96 [facility] ed Patient Tolerance : Negative Ambulat ory Pharmac y poliovirus vaccine, live, oral 1971 zzLef t Arm 02 complet ed polioviru s vaccine, live, oral 05/26/72 Given Ambulat ory Pharmac y Results Combined list of recent chemistry, hematology and other laboratory results from Department of Defense and Veterans Affairs, ranging from 15 months to all on record, depending upon the facility. Order Name Results Value Reference Range Date Interpretation Specimen Comments Source Coagulati on INR LC 1.3 06/15 H Result Comment: Reference interval is for non-anticoa gulated patients. Suggested INR therapeutic range for Vitamin K antagonist therapy: Standard Dose (moderate intensity therapeutic range): 2.0 - 3.0 Higher intensity therapeutic range 2.5 - 3.5 0055A[facility] Coagulati on Prothrombin Time LC 14.0 s 06/15 H Result Comment: Performed At: [address] [id number] Celia Rousseau PhD Ph:[phone] 0055A-3 [facility] Coagulati on Prothrombin Time LC 15.2 s 05/28 H Result Comment: Performed At: [address] [id number] Celia Rousseau PhD Ph:[phone] 00 0055A-3 [facility] Coagulati on INR LC 1.4 05/28 H Result Comment: Reference interval is for non-anticoa gulated patients. Suggested INR therapeutic range for Vitamin K antagonist therapy: Standard Dose (moderate intensity therapeutic range): 2.0 - 3.0 Higher intensity therapeutic range 2.5 - 3.5 0055A-3 [facility] [place] Coagulati on INR LC 1.5 05/21 H Result Comment: Reference interval is for non-anticoa gulated patients. Suggested INR therapeutic range for Vitamin K antagonist therapy: Standard Dose (moderate intensity therapeutic range): 2.0 - 3.0 Higher intensity therapeutic range 2.5 - 3.5 0055A-3 [facility] Coagulati on Prothrombin Time LC 16.0 s 05/21 H Result Comment: Performed At: 01 [facility] [address] [place], [place] [id number] Celia Rousseau PhD Ph:[phone] [place] [address] [place] Coagulati on INR LC 1.4 0.9 - 1.2 05/15 H Result Comment: Reference interval is for non-anticoa gulated patients. Suggested INR therapeutic range for Vitamin K antagonist therapy: Standard Dose (moderate intensity therapeutic range): 2.0 - 3.0 Higher intensity therapeutic range 2.5 - 3.5 -[address] [place] [address] [place] Coagulati on Prothrombin Time LC 15.0 s 9.1 - 12.0 05/15 H Result Comment: Performed At: [facility] [address] [place], [place] [id number] Celia Rousseau PhD Ph:[phone] [address] [place] [address] Chemistry Sodium 143 mmol/L 136 - 145 05/11 N 0055A-[address] [place] [address] Chemistry Potassium Lvl 4.3 mmol/L 3.5 - 5.1 05/11 N 0055A-[address] [place] [address] Chemistry Chloride 105 mmol/L 98 - 107 05/11 N 0055A-[address] [place] [address] Chemistry Calcium 9.5 mg/dL 8.4 - 10.2 05/11 N 0055A-[address] [place] [address] Chemistry Glucose Lvl 104 mg/dL 74 - 99 05/11 H 5A-[address] [place] [address] Chemistry Creatinine Level 0.90 mg/dL 0.72 - 1.25 05/11 N 0055A-[address] [place] [address] Chemistry CO2 29 mmol/L - 05/11 N 0055A-[address] [place] [address] Chemistry BUN/Creat Ratio 18 mg/dL 12 - 05/11 N 0055A-[address] [place] [address] Chemistry BUN 16 mg/dL - 05/11 N 0055A-[address] [place] [address] Chemistry AGAP 9.00 0.00 - 15.00 05/11 N 0055A-[address] [place] [address] Chemistry eGFR CKD EPI 90 mL/min/1 .73_m2 05/11 Interpretiv e Data: Estimated Glomerular Filtration Rate (eGFR) calculated using the 2020 Chronic Kidney Disease-Epi demiology (CKD-EPI) Collaborati on creatinine equation; units of measure are mL/min/1.73 m2. Results are only valid for adults (>=18 years) whose serum creatinine is in steady state. eGFR calculation s are not valid for patients with acute kidney injury and for patients on dialysis. Creatinine- based estimates of kidney function may also be inaccurate in patients with reduced creatinine generation due to decreased muscle mass (e.g., malnutritio n, severe hypoalbumin emia, sarcopenia, chronic neuromuscul ar disease, amputations , severe heart failure or liver disease) and in patients with increased creatinine generation due to increased muscle mass (e.g., muscle builders, anabolic steroids) or increased dietary intake. CKD is diagnosed based on abnormaliti es of kidney structure or function, present for >3 months, with implication s for health and disease. CKD is classified and staged based on cause, eGFR and albuminuria (quantified as urine albumin to creatinine ratio). An eGFR >60 mL/min/1.73 m2 in the absence of increased urine albumin excretion or structural abnormaliti es does not CKD. eGFR provides only an estimate of measured GFR within +/- 30% for most patients. As mentioned, nutritional status and muscle mass, among many factors, may lead to inaccuracy in the estimate. Consider ordering the creatinine- cystatin C panel if better accuracy is needed for clinical decision-artur laureano. eGFR (mL/min/1.7 3 m2) CKD stage Interpretat ion Normal 60-89 Mild decrease 45-59 Mild to moderate decrease 30-44 Moderate to severe decrease 15-29 Severe decrease <15 Kidney failure 5A-[address] [place], [place] [address]KAT[facility] Colon Coagulati on aPTT. LC 40 s 24 - 33 05/11 H Result Comment: This test has not been validated for monitoring unfractiona all heparin therapy. aPTT-based therapeutic ranges for unfractiona all heparin therapy have not been established . For general guidelines on Heparin monitoring, refer to the [facility] Directory of Services. Performed At: [address] [id number] Celia Rousseau PhD Ph:[phone] 5A-[address] [place], [place] [address]KATELYNN Colon Coagulati on INR LC 1.3 0.9 - 1.2 05/11 H Result Comment: Reference interval is for non-anticoa gulated patients. Suggested INR therapeutic range for Vitamin K antagonist therapy: Standard Dose (moderate intensity therapeutic range): 2.0 - 3.0 Higher intensity therapeutic range 2.5 - 3.5 -3 [facility] Coagulati on Prothrombin Time LC 14.3 s 9.1 - 12.0 05/11 H Result Comment: Performed At: [address] [id number] Celia Rousseau PhD Ph:[phone] 00 - [facility] Chemistry Ur Creat 117 mg/dL 04/19-3 [facility] Chemistry Ur Microalb/Ur Creat Ratio 7 mg/gCr 04/19 N - [address] [place] [address] Chemistry Ur Microalbumi n 8 mg/L 04/19 N Interpretiv e Data: To minimize intra-indiv idual variation, analysis of three random urine samples collected over the course of a week has also been recommended . [facility] Chemistry eGFR CKD EPI 90 mL/min/1 .73_m2 04/19 Interpretiv e Data: Estimated Glomerular Filtration Rate (eGFR) calculated using the 2020 Chronic Kidney Disease-Epi demiology (CKD-EPI) Collaborati on creatinine equation; units of measure are mL/min/1.73 m2. Results are only valid for adults (>=18 years) whose serum creatinine is in steady state. eGFR calculation s are not valid for patients with acute kidney injury and for patients on dialysis. Creatinine- based estimates of kidney function may also be inaccurate in patients with reduced creatinine generation due to decreased muscle mass (e.g., malnutritio n, severe hypoalbumin emia, sarcopenia, chronic neuromuscul ar disease, amputations , severe heart failure or liver disease) and in patients with increased creatinine generation due to increased muscle mass (e.g., muscle builders, anabolic steroids) or increased dietary intake. CKD is diagnosed based on abnormaliti es of kidney structure or function, present for >3 months, with implication s for health and disease. CKD is classified and staged based on cause, eGFR and albuminuria (quantified as urine albumin to creatinine ratio). An eGFR >60 mL/min/1.73 m2 in the absence of increased urine albumin excretion or structural abnormaliti es does not CKD. eGFR provides only an estimate of measured GFR within +/- 30% for most patients. As mentioned, nutritional status and muscle mass, among many factors, may lead to inaccuracy in the estimate. Consider ordering the creatinine- cystatin C panel if better accuracy is needed for clinical decision-artur laureano. eGFR (mL/min/1.7 3 m2) CKD stage Interpretat ion Normal 60-89 Mild decrease 45-59 Mild to moderate decrease 30-44 Moderate to severe decrease 15-29 Severe decrease <15 Kidney failure 0055A-[facility] Hematolog y Basophil % Auto 0.1 % 0.0 - 2.5 04/19 N [facility] Baso Absolute 0.0 x10^3/mc L 0.0 - 0.1103 04/19 N [facility]55A-[facility]olog [facility] Monocyte % Auto 7 % 1 - 12 04/19 N 0055A-[facility]olog [facility] Neutro Absolute 4.9 x10^3/mc L 2.0 - 7.0103 04/19 N 0055A-[facility] H[facility]olog [facility] Neutrophil % Auto 67.8 % 46.0 - 77.0 04/19 N 0055A-[facility] Lymphocyte % Auto 23.2 % 20.0 - 40.0 04/19 N 0055A-[facility] Eos Absolute 0.1 x10^3/mc L 0.0 - 0.7103 04/19 N 0055A-[facility] Eosinophil % Auto 1 % 0 - 5 04/19 N 0055A-[facility] [facility] Long Absolute 0.5 x10^3/mc L 0.2 - 0.8103 04/19 N 0055A-3 [facility] Lymph Absolute 1.7 x10^3/mc L 1.2 - 4.0103 04/19 N 0055A-[facility] WBC 7.3 x10^3/mc L 4.0 - 11.0103 04/19 N 0055A-3 [facility]olog [facility] MPV 10.3 fL 7.4 - 10.4 04/19 N 0055A-3 [facility] Hematolog [facility] RDW 14.6 % 11.0 - 14.9 04/19 N 0055A-3 [facility] Hematolog [facility] RBC 4.9 x10^6/mc L 4.0 - 5.6106 04/19 N 0055A-3 [facility] Hematolog [facility] Platelets 243.0 x10^3/mc L 150.0 - 450.0103 04/19 N 0055A-3 [facility] Hematolog y MCHC 31.9 g/dL 33.0 - 36.5 04/19 L 0055A-3 [facility] Hematolog [facility] MCH 28 pg 28 - 33 04/19 N 0055A-3 [facility] H[facility]olog [facility] MCV 88 fL 80 - 97 04/19 N 0055A-3 [facility] Hematolog [facility] Differentia l? Auto ( 4 8:15 AM) 04/19 N 0055A-3 [facility] H[facility]olog [facility] Hematocrit 43 % 40 - 49 04/19 N 0055A-3 [facility] H[facility]olog [facility] Hemoglobin 13.8 g/dL 13.0 - 16.3 04/19 N 0055A-[address] [place] [address]- [facility] Chemistry AST 19 U/L 5 - 34 04/19 N 0055A-3 [facility] [place] Chemistry BUN 22 mg/dL 8 - 26 04/19 N 0055A-3 [facility] [place] Chemistry Bilirubin Total 0.5 mg/dL 0.2 - 1.2 04/19 N 0055A-3 [facility] [place] Chemistry BUN/Creat Ratio 24 mg/dL 12 - 20 04/19 H 0055A-3 [facility] [place] Chemistry Albumin 3.40 g/dL 3.50 - 5.20 04/19 L 0055A-3 [facility] Chemistry AGAP 10.00 0.00 - 15.00 04/19 N - [address] [place] [address] Chemistry ALT 20 U/L 5 - 55 04/[address] [place] [address] Chemistry Alk Phos 71 U/L 40 - 150 04/19 N - [address] [place] [address] Chemistry Sodium 141 mmol/L 136 - 145 04/[address] [place] [address] Chemistry Potassium Lvl 4.2 mmol/L 3.5 - 5.1 04/[address] [place] [address] Chemistry Protein Total 7.3 g/dL 6.4 - 8.3 04/[address] [place] [address] Chemistry Calcium 9.1 mg/dL 8.4 - 10.2 04/[address] [place] [address] Chemistry CO2 23 mmol/L 22 - 29 04/[address] [place] [address] Chemistry Chloride 108 mmol/L 98 - 107 04/[address] [place] [address] Chemistry Glucose Lvl 103 mg/dL 74 - 99 04/[address] [place] [address] Chemistry Creatinine Level 0.90 mg/dL 0.72 - 1.25 04/[address] [place] [address] Chemistry eAvg Glucose 123 mg/dL 04/[address] [place] [address] Chemistry Hemoglobin A1c 5.9 % 4.0 - 5.6 04/19 H Interpretiv e Data: Normal: 4.0 - 5.6% Increased Risk: 5.7 - 6.4% Diabetic Range: 6.5% For patients without diabetes, the normal range for the hemoglobin A1c test is between 4% and 5.6%. Hemoglobin A1c levels between 5.7% and 6.4% indicate increased risk of diabetes, and levels of 6.5% or higher indicate diabetes. Because studies have repeatedly shown that out-of-cont rol diabetes results in complicatio ns from the disease, the goal for people with diabetes is a hemoglobin A1c less than 7%. The higher the hemoglobin A1c, the higher the risks of developing complicatio ns related to diabetes. If confirmatio n is needed, consider recalling the patient and ordering Hemoglobin Electrophor esis. [facility] [employer] Chemistry Triglycerid es 73 mg/dL 7 - 149 04/19 N Interpretiv e Data: AGES 0-9: Desirable: < 75 mg/dL Borderline High: 75-99 mg/dL High: >/= 100 mg/dL AGES 10-19: Desirable: < 90 mg/dL Borderline High: 90-129 mg/dL High: >/= 130 mg/dL ADULTS: Desirable: < 150 mg/dL Borderline High: 150-199 mg/dL High: >/= 240 mg/dL Very High: >/= 500 mg/dL [facility] HDL Cholesterol 36 mg/dL 40 - 59 04/19 L Interpretiv e Data: HDL (HIGH DENSITY LIPOPROTEIN ): ADULTS: Low: < 40 mg/dL High: >/= 60 mg/dL AGES 0 -19: Low: < 40 mg/dL Borderline Low: 40 - 45 mg/dL Acceptable: > 45 mg/dL [address] [place], [place] [address]modu Chemistry Cholesterol Total 103 mg/dL 04/19 N Interpretiv e Data: According to the [place] [employer] : AGES 0-19: Desirable: < 170 mg/dL Borderline High: 170-199 mg/dL High Blood Cholesterol : >/= 200 mg/dL ADULTS: Desirable < 200 mg/dL Borderline High: 200-239 mg/dL High Blood Cholesterol : >/= 240 mg/dL [facility] Chemistry LDL/HDL 2 04/[address] [place] [address] [facility] Chemistry LDL 55 mg/dL 100 - 130 04/19 L Interpretiv e Data: AGES 0-19: Desirable: < 110 mg/dL Borderline High: 110-129 mg/dL High: >/= 130 mg/dL ADULTS: Desirable: <100 mg/dL Near/above optimal: 100-130 mg/dL Borderline High: 131-159 mg/dL High: 160-189 mg/dL Very High: 190 mg/dL [facility] Chemistry Chol/HDL 3 mg/dL 04/[address] [place], [place] [address]modu Chemistry % Free PSA LC 33.3 % 04/19 Result Comment: The table below lists the probability of prostate cancer for men with non-suspici ous KEVIN results and total PSA between 4 and 10 ng/mL, by patient age (Justin et al, DAVIN 1998, 279:1542). % Free PSA 50-64 yr 65-75 yr 0.00-10.00% 56% 55% 10.01-15.00 % 24% 35% 15.01-20.00 % 17% 23% 20.01-25.00 % 10% 20% >25.00% 5% 9% Please note: Justin et al did not make specific recommendat ions regarding the use of percent free PSA for any other population of men. Performed At: [address] [id number] Celia Rousseau PhD Ph:[phone] 00 - [facility] PSA Free LC 0.10 ng/mL N/A 04/19 Result Comment: Karina ECLIA methodology . [facility] Prostate Specific Ag LC 0.3 ng/mL 0.0 - 4.0 04/19 Result Comment: Karina ECLIA methodology . According to the [place] [employer] , Serum PSA should decrease and remain at undetectabl e levels after radical prostatecto my. The AUA defines biochemical recurrence as an initial PSA value 0.2 ng/mL or greater followed by a subsequent confirmator y PSA value 0.2 ng/mL or greater. Values obtained with different assay methods or kits cannot be used interchange ably. Results cannot be interpreted as absolute evidence of the presence or absence of malignant disease. [facility] Ur Creat 153 mg/dL 06/30-3 [facility] Ur Microalb/Ur Creat Ratio 8 mg/gCr 06/30 N -3 [facility] Ur Microalbumi n 13 mg/L 06/30 N Interpretiv e Data: To minimize intra-indiv idual variation, analysis of three random urine samples collected over the course of a week has also been recommended . - [facility] Sodium 138 mmol/L 136 - 145 06/30 [facility] Glucose Lvl 105 mg/dL 74 - 99 06/[address] [place] [address] Chemistry Potassium Lvl 3.9 mmol/L 3.5 - 5.1 06/[address] [place] [address] Chemistry CO2 24 mmol/L 22 - 29 06/[address] [place] [address] Chemistry Creatinine Level 1.00 mg/dL 0.72 - 1.25 06/[address] [place] [address] Chemistry Calcium 9.2 mg/dL 8.4 - 10.2 06/[address] [place] [address] Chemistry Chloride 104 mmol/L 98 - 107 06/[address] [place] [address] Chemistry BUN 20 mg/dL 8 - 26 06/[address] [place] [address] Chemistry BUN/Creat Ratio 20 mg/dL 12 - 20 06/[address] [place] [address] Chemistry AGAP 10.00 0.00 - 15.00 06/[address] [place] [address] Chemistry eGFR CKD EPI 79 mL/min/1 .73_m2 06/30 Interpretiv e Data: Estimated Glomerular Filtration Rate (eGFR) calculated using the 2020 Chronic Kidney Disease-Epi demiology (CKD-EPI) Collaborati on creatinine equation; units of measure are mL/min/1.73 m2. Results are only valid for adults (>=18 years) whose serum creatinine is in steady state. eGFR calculation s are not valid for patients with acute kidney injury and for patients on dialysis. Creatinine- based estimates of kidney function may also be inaccurate in patients with reduced creatinine generation due to decreased muscle mass (e.g., malnutritio n, severe hypoalbumin emia, sarcopenia, chronic neuromuscul ar disease, amputations , severe heart failure or liver disease) and in patients with increased creatinine generation due to increased muscle mass (e.g., muscle builders, anabolic steroids) or increased dietary intake. CKD is diagnosed based on abnormaliti es of kidney structure or function, present for >3 months, with implication s for health and disease. CKD is classified and staged based on cause, eGFR and albuminuria (quantified as urine albumin to creatinine ratio). An eGFR >60 mL/min/1.73 m2 in the absence of increased urine albumin excretion or structural abnormaliti es does not CKD. eGFR provides only an estimate of measured GFR within +/- 30% for most patients. As mentioned, nutritional status and muscle mass, among many factors, may lead to inaccuracy in the estimate. Consider ordering the creatinine- cystatin C panel if better accuracy is needed for clinical decision-artur laureano. eGFR (mL/min/1.7 3 m2) CKD stage Interpretat ion Normal 60-89 Mild decrease 45-59 Mild to moderate decrease 30-44 Moderate to severe decrease 15-29 Severe decrease <15 Kidney failure [address] [place] [address] [facility] Hemoglobin A1c 5.7 % 4.0 - 5.6 02/04 H Interpretiv e Data: Normal: 4.0 - 5.6% Increased Risk: 5.7 - 6.4% Diabetic Range: 6.5% For patients without diabetes, the normal range for the hemoglobin A1c test is between 4% and 5.6%. Hemoglobin A1c levels between 5.7% and 6.4% indicate increased risk of diabetes, and levels of 6.5% or higher indicate diabetes. Because studies have repeatedly shown that out-of-cont rol diabetes results in complicatio ns from the disease, the goal for people with diabetes is a hemoglobin A1c less than 7%. The higher the hemoglobin A1c, the higher the risks of developing complicatio ns related to diabetes. If confirmatio n is needed, consider recalling the patient and ordering Hemoglobin Electrophor esis. [address] [place] [address] [facility] eAvg Glucose 117 mg/dL 02/[address] [place] [address] [facility] Ur Creat 161 mg/dL 02/04-[address] [place] [address] [facility] AGAP 11.00 0.00 - 15.00 02/04 N -[address] [place] [address] [facility] BUN 18 mg/dL 8 - 26 02/04 N -[address] [place] [address] [facility] BUN/Creat Ratio 20 mg/dL 12 - 20 02/04 N -[address] [place] [address] [facility] Calcium 9.7 mg/dL 8.4 - 10.2 02/04 N -[address] [place] [address] [facility] Chloride 104 mmol/L 98 - 107 02/04 N 0055A-[address] [place] [address] Chemistry CO2 27 mmol/L 22 - 29 02/04 N 0055A-[address] [place] [address] Chemistry Creatinine Level 0.90 mg/dL 0.72 - 1.25 02/04 N 0055A-[address] [place] [address] Chemistry Glucose Lvl 98 mg/dL 74 - 99 02/04 N 0055A-[address] [place] [address] Chemistry Potassium Lvl 4.3 mmol/L 3.5 - 5.1 02/04 N 0055A-[address] [place] [address] Chemistry Sodium 142 mmol/L 136 - 145 02/04 N 0055A-[address] [place] [address] Chemistry PSA Total 0.40 ng/mL 0.05 - 6.22 02/04 N Interpretiv e Data: This assay shows no biotin interferenc e in samples with biotin concentrati ons up to 1200 ng/mL. 0117A-A F-ASU-5 [facility] Hematolog y Hemoglobin 14.3 g/dL 13.0 - 16.3 02/04 N 0055A-[address] [place] [address] Hematolog y MCH 27 pg 28 - 33 02/04 L 0055A-[address] [place] [address] Hematolog y MCHC 31.1 g/dL 33.0 - 36.5 02/04 L 0055A-[address] [place] [address] Hematolog y Hematocrit 46 % 40 - 49 02/04 N 0055A-[address] [place] [address] Hematolog y RDW 15.0 % 11.0 - 14.9 02/04 H 0055A-[address] [place] [address] Hematolog y WBC 8.2 x10^3/mc L 4.0 - 11.0103 02/04 N 0055A-[address] [place] [address] Hematolog y MCV 88 fL 80 - 97 02/04 N 0055A-[address] [place] [address] Hematolog y MPV 10.5 fL 7.4 - 10.4 02/04 H 0055A-[address] [place] [address] Hematolog y Platelets 346.0 x10^3/mc L 150.0 - 450.0103 02/04 N - [address] [place] [address] Hematolog y RBC 5.2 x10^6/mc L 4.0 - 5.6106 02/04 N - [address] [place] [address] Chemistry Triglycerid es 86 mg/dL 7 - 149 02/04 N Interpretiv e Data: AGES 0-9: Desirable: < 75 mg/dL Borderline High: 75-99 mg/dL High: >/= 100 mg/dL AGES 10-19: Desirable: < 90 mg/dL Borderline High: 90-129 mg/dL High: >/= 130 mg/dL ADULTS: Desirable: < 150 mg/dL Borderline High: 150-199 mg/dL High: >/= 240 mg/dL Very High: >/= 500 mg/dL [address] [place] [address] Chemistry HDL Cholesterol 36 mg/dL 40 - 59 02/04 L Interpretiv e Data: HDL (HIGH DENSITY LIPOPROTEIN ): ADULTS: Low: < 40 mg/dL High: >/= 60 mg/dL AGES 0 -19: Low: < 40 mg/dL Borderline Low: 40 - 45 mg/dL Acceptable: > 45 mg/dL [address] [place] [address] Chemistry Cholesterol Total 103 mg/dL 02/04 N Interpretiv e Data: According to the [place] [employer] : AGES 0-19: Desirable: < 170 mg/dL Borderline High: 170-199 mg/dL High Blood Cholesterol : >/= 200 mg/dL ADULTS: Desirable < 200 mg/dL Borderline High: 200-239 mg/dL High Blood Cholesterol : >/= 240 mg/dL [address] [place] [address] Chemistry LDL/HDL 1 02/[address] [place] [address] Chemistry LDL 53 mg/dL 100 - 130 02/04 L Interpretiv e Data: AGES 0-19: Desirable: < 110 mg/dL Borderline High: 110-129 mg/dL High: >/= 130 mg/dL ADULTS: Desirable: <100 mg/dL Near/above optimal: 100-130 mg/dL Borderline High: 131-159 mg/dL High: 160-189 mg/dL Very High: 190 mg/dL [address] [place] [address] Chemistry Chol/HDL 3 mg/dL 02/04- [address] [place] [address] Hematolog y Basophil % Auto 0.2 % 0.0 - 2.5 02/04 N 0055A-[address] [place] [address] Hematolog y Baso Absolute 0.0 x10^3/mc L 0.0 - 0.1103 02/04 N 0055A-[address] [place] [address] Hematolog y Long Absolute 0.5 x10^3/mc L 0.2 - 0.8103 02/04 N 0055A-[address] [place] [address] Hematolog y Lymph Absolute 1.8 x10^3/mc L 1.2 - 4.0103 02/04 N 0055A-[address] [place] [address] Hematolog y Lymphocyte % Auto 22.3 % 20.0 - 40.0 02/04 N 0055A-[address] [place] [address] Hematolog y Eosinophil % Auto 2 % 0 - 5 02/04 N 0055A-[address] [place] [address] Hematolog y Eos Absolute 0.1 x10^3/mc L 0.0 - 0.7103 02/04 N 0055A-[address] [place] [address] Hematolog y Neutrophil % Auto 69.3 % 46.0 - 77.0 02/04 N 0055A-[address] [place] [address] Hematolog y Neutro Absolute 5.7 x10^3/mc L 2.0 - 7.0103 02/04 N 0055A-[address] [place] [address] Hematolog y Monocyte % Auto 6 % 1 - 12 02/04 N 0055A-[address] [place] [address] Chemistry Vitamin B12 954 pg/mL 232 - 1245 02/04 N Interpretiv e Data: 22 APR 2017 Notice: Samples for this assay should not be taken from patients receiving therapy with high biotin doses (i.e. > 5 mg/day) until 8 hours following last biotin administrat ion. 0117A-A F-ASU-5 [facility] Chemistry Folate Lvl >20.0 ng/mL 02/04 N Interpretiv e Data: 19 MAY 2017 Notice: Samples for thes asssay should not be taken from patients receiving therapy with high biotin doses (i.e. > 5 mg/day) until 8 hours following last biotin administrat ion. Please note that these values were obtained in the [place] during National Health and Nutrition Examination Survey (NHANES), 1999 -2004. it should be taken into considerati on that differences in the expected values may exist with respect to population and dietary status. New Reference Range effective 17 0117A-A F-ASU-5 9th [facility] Chemistry eGFR CKD EPI 90 mL/min/1 .73_m2 02/04 Interpretiv e Data: Estimated Glomerular Filtration Rate (eGFR) calculated using the 2020 Chronic Kidney Disease-Epi demiology (CKD-EPI) Collaborati on creatinine equation; units of measure are mL/min/1.73 m2. Results are only valid for adults (>=18 years) whose serum creatinine is in steady state. eGFR calculation s are not valid for patients with acute kidney injury and for patients on dialysis. Creatinine- based estimates of kidney function may also be inaccurate in patients with reduced creatinine generation due to decreased muscle mass (e.g., malnutritio n, severe hypoalbumin emia, sarcopenia, chronic neuromuscul ar disease, amputations , severe heart failure or liver disease) and in patients with increased creatinine generation due to increased muscle mass (e.g., muscle builders, anabolic steroids) or increased dietary intake. CKD is diagnosed based on abnormaliti es of kidney structure or function, present for >3 months, with implication s for health and disease. CKD is classified and staged based on cause, eGFR and albuminuria (quantified as urine albumin to creatinine ratio). An eGFR >60 mL/min/1.73 m2 in the absence of increased urine albumin excretion or structural abnormaliti es does not CKD. eGFR provides only an estimate of measured GFR within +/- 30% for most patients. As mentioned, nutritional status and muscle mass, among many factors, may lead to inaccuracy in the estimate. Consider ordering the creatinine- cystatin C panel if better accuracy is needed for clinical decision-artur laureano. eGFR (mL/min/1.7 3 m2) CKD stage Interpretat ion Normal 60-89 Mild decrease 45-59 Mild to moderate decrease 30-44 Moderate to severe decrease 15-29 Severe decrease <15 Kidney failure 0055A-3 [facility] Chemistry eGFR CKD EPI 90 mL/min/1 .73_m2 12/01 Interpretiv e Data: Estimated Glomerular Filtration Rate (eGFR) calculated using the 2020 Chronic Kidney Disease-Epi demiology (CKD-EPI) Collaborati on creatinine equation; units of measure are mL/min/1.73 m2. Results are only valid for adults (>=18 years) whose serum creatinine is in steady state. eGFR calculation s are not valid for patients with acute kidney injury and for patients on dialysis. Creatinine- based estimates of kidney function may also be inaccurate in patients with reduced creatinine generation due to decreased muscle mass (e.g., malnutritio n, severe hypoalbumin emia, sarcopenia, chronic neuromuscul ar disease, amputations , severe heart failure or liver disease) and in patients with increased creatinine generation due to increased muscle mass (e.g., muscle builders, anabolic steroids) or increased dietary intake. CKD is diagnosed based on abnormaliti es of kidney structure or function, present for >3 months, with implication s for health and disease. CKD is classified and staged based on cause, eGFR and albuminuria (quantified as urine albumin to creatinine ratio). An eGFR >60 mL/min/1.73 m2 in the absence of increased urine albumin excretion or structural abnormaliti es does not CKD. eGFR provides only an estimate of measured GFR within +/- 30% for most patients. As mentioned, nutritional status and muscle mass, among many factors, may lead to inaccuracy in the estimate. Consider ordering the creatinine- cystatin C panel if better accuracy is needed for clinical decision-artur laureano. eGFR (mL/min/1.7 3 m2) CKD stage Interpretat ion Normal 60-89 Mild decrease 45-59 Mild to moderate decrease 30-44 Moderate to severe decrease 15-29 Severe decrease <15 Kidney failure -3 [facility] Ur Microalbumi n 10 mg/gCr 12/01 N Interpretiv e Data: To minimize intra-indiv idual variation, analysis of three random urine samples collected over the course of a week has also been recommended . -3 [facility] Ur Creat 85 mg/dL 12/01-3 [facility] Ur Microalb/Ur Creat Ratio 11.8 mg/gCr 12/01 Result Comment: CORRECTED DUE TO UNIT OF MEASURE CONVERSION -3 [facility] Urinalysi s UA Color Yellow *NA* (12/01/22 8:47 AM) 12/01 0055A-[address] [place] [address] Urinalysi s UA Nitrite Negative (12/01/22 8:47 AM) 12/01 N 0055A-[address] [place] [address] Urinalysi s UA Leuk Esterase Negative (12/01/22 8:47 AM) 12/01 N 0055A-[address] [place] [address] Urinalysi s UA Ketones Negative mg/dL 12/01 N 0055A-[address] [place] [address] Urinalysi s UA Glucose Negative mg/dL 12/01 N 0055A-[address] [place] [address] Urinalysi s UA Bacteria Trace *ABN* (12/01/22 8:47 AM) 12/01 A 0055A-[address] [place] [address] Urinalysi s UA Clarity Clear *NA* (12/01/22 8:47 AM) 12/01 0055A-[address] [place] [address] Urinalysi s UA Blood Small *NA* (12/01/22 8:47 AM) 12/01 0055A-[address] [place] [address] Urinalysi s UA Bili Negative (12/01/22 8:47 AM) 12/01 N 0055A-[address] [place] [address] Urinalysi s UA WBC 0-2 /HPF 12/01 N 0055A-[address] [place] [address] Urinalysi s UA Protein Negative mg/dL 12/01 N 0055A-[address] [place] [address] Urinalysi s UA pH 5.5 5 - 8 12/01 0055A-[address] [place] [address] Urinalysi s UA Urobilinoge n 0.2 E.U./dL 0.2 - 1.0.. 12/01 N 0055A-[address] [place] [address] Urinalysi s UA Spec [place] 1.020 1.001 - 1.035 12/01 N 0055A-[address] [place] [address] Urinalysi s UA RBC 3-4 /HPF 12/01 N 0055A-[address] [place] [address] Chemistry BUN 20 mg/dL 8 - 26 12/01 N 5A-[address] [place] [address] Chemistry AGAP 10.00 0.00 - 15.00 12/01 N 0055A-[address] [place] [address] Chemistry Calcium 9.6 mg/dL 8.4 - 10.2 12/01 N 0055A-[address] [place] [address] Chemistry BUN/Creat Ratio 22 mg/dL 12 - 20 12/01 H 5A-[address] [place] [address] Chemistry Sodium 139 mmol/L 136 - 145 12/01 N 0055A-[address] [place] [address] Chemistry Chloride 104 mmol/L 98 - 107 12/01 N 005-[address] [place] [address] Chemistry Creatinine Level 0.90 mg/dL 0.72 - 1.25 12/01 N -[address] [place] [address] Chemistry CO2 25 mmol/L 22 - 29 12/01 N -[address] [place] [address] Chemistry Potassium Lvl 4.1 mmol/L 3.5 - 5.1 12/01 N 005-[address] [place] [address] Chemistry Glucose Lvl 100 mg/dL 74 - 99 12/01 H 5A-[address] [place] [address] Vital Signs Combined list of inpatient and outpatient Vital Signs from Department of Defense and Veterans Affairs, ranging from 12 months to all on record, depending upon the facility. Vital Sign Value Date Comments Source Respiratory Rate 18 br/min 02/03/2023 19:45:00 7785W-Nw-I-[address] [place] [address]-[facility] Systolic Blood Pressure 94 mm[Hg] 02/03/2023 19:45:00 1536D-Xy-B-[address] [place] [address]-[facility] Diastolic Blood Pressure 59 mm[Hg] 02/03/2023 19:45:00 4533G-Hf-K-[address] [place] [address]-[facility] Peripheral Pulse Rate 77 bpm 02/03/2023 19:45:00 6206I-Rz-R-[address] [place] [address]-[facility] Blood Pressure Manual Automatic 02/03/2023 19:45:00 4731Q-Bp-X-[address] [place] [address]-[facility] Mean Arterial Pressure, Calc 71 mm[Hg] 02/03/2023 19:45:00 6513Y-Uv-G-3 [facility] BP Site Left arm 02/03/2023 19:45:00 6130C -Af-C-[facility] Mean Arterial Pressure, Calc 90 mm[Hg] 04/26/2024 14:12:00 5014Z-Ra-W-3 [facility] Blood Pressure Manual Automatic 04/26/2024 14:12:00 0175D-Ja-Z-[facility] Peripheral Pulse Rate 68 bpm 04/26/2024 14:12:00 7140L-Uf-T-[facility] Systolic Blood Pressure 127 mm[Hg] 04/26/2024 14:12:00 7608A-Bs-E-[facility] Diastolic Blood Pressure 72 mm[Hg] 04/26/2024 14:12:00 2330P-Wm-D-[facility] Respiratory Rate 18 br/min 04/26/2024 14:12:00 4258Z-Lu-T-[facility] Encounters Combined list of: 1) Encounters from Department of Veterans Affairs facilities going backup to the last 18 months, not all VA inpatient encounters are included; 2) Encounters from the Department of Defense facilities going backup to 280 months. Location Location Details Encounter Type Encounter Number Reason For Visit Attending Provider ADM Date DC Date Status Disposition Source - [facility] [id number] MILTON RODRIGUEZ 05/28 Discharge Disposition: Home or Self Care -3 [facility] 6130C-Af- C-[facility] Between Visit [id number] 05/29 Discharge Disposition: Home or Self Care 6130C-A f-C-[facility] 6130C-Af- C-[facility] Between Visit [id number] 05/29 Discharge Disposition: Home or Self Care 6130C-A f-C-[facility] 0055A-[facility] Outpatient [id number] MILTON RODRIGUEZ 06/15 Discharge Disposition: Home or Self Care 0055A-3 [facility] 6130C-Af- C[facility] Between Visit [id number] 06/18 Discharge Disposition: Home or Self Care 6130C-A f-C-375 [facility] Procedures Combined list of: 1) Procedures from [facility] Affairs facilities [facility], not all VA non-surgical procedures are included; 2) All procedures from the Department of Defense facilities. Procedure Procedure Type Code Date Perfomer Comments Sourc e No data available for this section Ambulatory P harmacy Social History Combined list of available smoking, tobacco, and other social history from Department of Defense and Veterans Affairs facilities. Social History Type Response Date Comment Sourc e Sex Representation Male (finding) 08/25/2022 Un known Organization Tobacco Never-cigarette user Cigarette use:. Never-other tobacco user (not cigarettes) Other Tobacco use:. Ambulatory Pharmacy Sexual Orientation Ambula tory Pharmacy Gender identity Ambulator y Pharmacy Assessment and Plan Combined list of future care activities from Department of Defense and Veterans Affairs facilities (e.g., assessment and plan notes, appointments, orders, and referrals). Additional future care activities may be listed in the Plan of Care section. Result Assessment and Plan Date Source Assessment and Plan Extracted from:Title : FM- Annual, PVD, HLD, T2DM Author: OTILIO SOLORIO MD Date: 04/26/24 1. E ncounter for general adult medical examination with abnormal findings [address] [place] [address] ONLY Preventative medicine visit with no emergent concerns. Recommendations listed below: ---_ - All lab results discussed with patient, see plans as applicable below - See rainey results section for labs ---- VACCINES: - UTD ----- PSYCHOSOCIAL HEALTH: - PHQ-9 and JOSH-7 r eassuring ----- FUNCTIONAL HEALTH: 10010 -Rapid geriatric assessment r eassuring -Advanced directive in place,will and medical POA ---- CANCER SCREENING: - P rostate Cancer Screening: U TD - C olon Cancer Screening: U TD - May DC future screening ----- DIET and EXERCISE: -Discussed SMART methods for change and importance of starting with one goal for becoming healthier -Emphasized importance of 150 minutes of moderate exercise per week, can accomplish with variety of activities including walking -Instructed to make follow up visit to further discuss diet and exercise counseling, weight loss options if applicable and patient desires ----- FOLLOW UP: - Annually 2. P VD - peripheral vascular disease Acute, u ncontrolled. HPI and PE concerning for PAD. No evidence of other causes of arterial obstruction (arterial aneurysm, arterial dissection, embolism, popliteal entrapment syndrome, Thromboangiitis obliterans, trauma, radiation arteritis, compartment syndrome, leg cramps, neurologic pain, or medication side effect). Recommendations: -Risk factor modifications -- Discussed smoking cessation -- Discussed initiating/increasing statin therapy -- BP at goal of: <140/90 -- A1C at goal of: <7.0 -- Discussed Dietary modifications (i.e. Mediterranean Diet) -- Discussed Exercise therapy (minimum of 45-60minute duration at least 3x/week for 12 weeks and achieving exercise level that is sufficient to elicit claudication) - Refer for resting ankle-brachial index (or toe-brachial index for persons with noncompressible vessels or DM) (normal values = 1.00-1.40; abnormal is </=0.90; borderline 0.99>0.91; noncompressible is >1.40) -Follow up: p ending test results Ordered: US Ankle Brachial Index (CARLA) US Lower Ext Venous Duplex Bilateral 3. T 2DM - diabetes mellitus type 2 Acute, u ncontrolled N o evidence of nephropathy, neuropathy, or retinopathy. H bA1C?is at goal (<7). M icroalbumin/Creatinine ratio i s at goal (<30). L ipids a re at goal (<100) p er AHA/ACC guidelines. Recommendations: - Labs: U TD - Medications: metformin 500mg XL - Cardiovascular: [x] BP at goal (<130/80 per AHA/ACC guidelines) [x] Continue THEO-i/ARB therapy [x] Continue Statin therapy -Lifestyle Modifications: [x] Nutrition: discussed dietary modifications (Mediterranean diet) [x] Physical activity: encouraged increased activity with goal of 150min moderate exertion weekly [x] Sleep: reviewed sleep hygiene; goal of 6-8hr/night [x] Behavioral modification: pt has good social support [_] Smoking cessation (if applicable): encouraged tobacco cessation [_] Patient education: Disease management referral placed -Prevention: [x] Encouraged annual optometry evaluation [x] Encouraged annual dental evaluation [x] Annual foot examination performed: c old, weak DP/Pt pulses, decresed sensation, hair loss Follow Up: annually Ordered: metFORMIN(MetFORMIN (Eqv-Fortamet) 500 mg oral tablet, extended release), 1 tab(s), Oral, Daily, # 90 tab(s), 3 total refill(s), Maintenance, 1 tab(s) Oral Daily, Pharmacy: [facility] [Not filled] 4. H LD - Hyperlipidemia Acute, u ncontrolled -Statin therpay indicated: Yes -LDL goal: <100 (high risk) - Continue s tatin therapy: a torvastatin 40mg daily - Labs: [x] then annually - Cardiovascular: [x] BP at goal (<130/80 per AHA/ACC guidelines) - Lifestyle Modifications: [x] Nutrition: discussed dietary modifications (Mediterranean diet) [x] Physical activity: encouraged increased activity with goal of 150min moderate exertion weekly [x] Sleep: reviewed sleep hygiene; goal of 6-8hr/night [x] Behavioral modification: pt has good social support [_] Smoking cessation (if applicable): encouraged tobacco cessation [_] Patient education: Disease management referral placed Ordered: atorvastatin(atorvastatin 40 mg oral tablet), 1 tab(s), Oral, Daily, Take on tab daily for cholesterol, # 90 tab(s), 3 total refill(s), Maintenance, 1 tab(s) Oral Daily,Instr:Take on tab daily for cholesterol, Pharmacy: [facility] [Not filled] 5. D epression screening negative - See plan above 6. P atient advised about exercise - See plan above 7. E ncounter for screening for malignant neoplasm of prostate - See plan above Orders: rivaroxaban(rivaroxaban 20 mg oral tablet), 1 tab(s), Oral, every evening, with evening meal, # 90 tab(s), 3 total refill(s), Maintenance, with evening meal, 1 tab(s) Oral every evening,Instr:with evening meal, Pharmacy: [facility] [Not filled] Patient understood, relayed back, and agreed with the plan. Patient aware to call 911 or go to the nearest emergency room/urgent care for any urgent/emergent concerns or call [phone] and leave message with the clinic for any other concerns. Patient can also access Plastyc at [email or web address] to leave message with PCM Team. //SIGNED// Capt Otilio Solorio DO Hand Dry Cleaner Physician, PGY-[address] [place] [address], [facility] [place] This note was dictated using Panna dictation software. While it was proofread for errors, there may still be grammatical and dictation errors. Addendum by BHAVIK MORFIN MD on April 26, 2024 15:31:07 BANDMILL OPERATOR I certify that I was present for case discussion in the Family Medicine preceptor room at the time of this encounter. I have reviewed the note and agree with the findings, assessment, and plan except as I have documented below. Follow up as listed. All labs/imaging/consults to be followed by the ordering provider. Bhavik Morfin MD, [facility], [facility] Family Medicine and Obstetrics Faculty Physician [address] [place] [address], [facility] [place], [place] Extracted from:Title: Family Medicine - Adult Well Visit Author: JACKY DEAL DO Date: 02/03/23 1. W ell adult Preventative medicine visit with no emergent concerns. Recommendations listed below: ---- CARDIOVASCULAR RISK ASSESSMENT: -Hypertension screening: performed; BP a t goal p er J NC-8 g uidelines ---- VACCINES: - Advised annual flu vaccine ----- METABOLIC: - L ipid screening: U TD [x] ordered - D M screening: U TD [x] Hgb A1c ordered ---- CANCER SCREENING: - P rostate Cancer Screening: N /A [x] pt requests PSA level ordered - C olon Cancer Screening: U TD [_] age > 4 5 per USPSTF DIETS: -Mediterranean: Discussed that the Mediterranean diet consists of a diet high in fruits, vegetables, whole grains, etc. Mediterranean diet has been associated with decreased incidence of stroke and CVD. Handout was provided on the Mediterranean diet for patient to review at home. ----- OTHER: - Discussed wearing safety belts, helmets (if motorcycle rider), sunscreen, smoke detectors in home - Placed referral to nutrition for further education on balanced diet ----- FOLLOW UP: - Annually Ordered: Albumin, Random Ur [id number] Basic Metabolic Panel CBC w/ Diff Creatinine, Urine Lipid Panel Prostate Specific Antigen 2. H TN - Hypertension Will obtain BMP to asses kidney function 3. P rediabetes HgbA1c ordered. Will report results to patient. 4. P eripheral neuropathy Chronic. Significantly improved with B12 supplementation. Will obtain B12/Folate level as well as CBC to assess for potential alternative etiologies. Ordered: Vit B12 and Folate [id number] Orders: metFORMIN(MetFORMIN (Eqv-Fortamet) 500 mg oral tablet, extended release), 1 tab(s), Oral, Daily, # 90 EA, 3 total refill(s), Maintenance, 1 tab(s) Oral Daily, Pharmacy: [facility] [Not filled] Jacky Deal DO, Maj, INGRID, Hand Dry Cleaner [address] , [place] Addendum by MILTON SIN MD on February 03, 2023 15:38:36 CDT On the day of encounter, I was available for discussion with the resident physician. Case was discussed with me in the Teach Room. I agree with the assessment and plan of care as documented above with any exceptions/additions noted below if necessary. All labs/rads/consults to be followed by the ordering provider. DO Thony Colvin [employer]F, Family Medicine Physician Future Scheduled TestsLaboratoryPT and INR 06/15/24 10/02/2024 [id number] [place] Assessment and Plan Extracted from:Title : FM- Annual, PVD, HLD, T2DM Author: OTILIO SOLORIO MD Date: 04/26/24 1. E ncounter for general adult medical examination with abnormal findings [address] [place] [address] ONLY Preventative medicine visit with no emergent concerns. Recommendations listed below: ---_ - All lab results discussed with patient, see plans as applicable below - See rainey results section for labs ---- VACCINES: - UTD ----- PSYCHOSOCIAL HEALTH: - PHQ-9 and JOSH-7 r eassuring ----- FUNCTIONAL HEALTH: 80510 -Rapid geriatric assessment r eassuring -Advanced directive in place,will and medical POA ---- CANCER SCREENING: - P rostate Cancer Screening: U TD - C olon Cancer Screening: U TD - May DC future screening ----- DIET and EXERCISE: -Discussed SMART methods for change and importance of starting with one goal for becoming healthier -Emphasized importance of 150 minutes of moderate exercise per week, can accomplish with variety of activities including walking -Instructed to make follow up visit to further discuss diet and exercise counseling, weight loss options if applicable and patient desires ----- FOLLOW UP: - Annually 2. P VD - peripheral vascular disease Acute, u ncontrolled. HPI and PE concerning for PAD. No evidence of other causes of arterial obstruction (arterial aneurysm, arterial dissection, embolism, popliteal entrapment syndrome, Thromboangiitis obliterans, trauma, radiation arteritis, compartment syndrome, leg cramps, neurologic pain, or medication side effect). Recommendations: -Risk factor modifications -- Discussed smoking cessation -- Discussed initiating/increasing statin therapy -- BP at goal of: <140/90 -- A1C at goal of: <7.0 -- Discussed Dietary modifications (i.e. Mediterranean Diet) -- Discussed Exercise therapy (minimum of 45-60minute duration at least 3x/week for 12 weeks and achieving exercise level that is sufficient to elicit claudication) - Refer for resting ankle-brachial index (or toe-brachial index for persons with noncompressible vessels or DM) (normal values = 1.00-1.40; abnormal is </=0.90; borderline 0.99>0.91; noncompressible is >1.40) -Follow up: p ending test results Ordered: US Ankle Brachial Index (CARLA) US Lower Ext Venous Duplex Bilateral 3. T 2DM - diabetes mellitus type 2 Acute, u ncontrolled N o evidence of nephropathy, neuropathy, or retinopathy. H bA1C?is at goal (<7). M icroalbumin/Creatinine ratio i s at goal (<30). L ipids a re at goal (<100) p er AHA/ACC guidelines. Recommendations: - Labs: U TD - Medications: metformin 500mg XL - Cardiovascular: [x] BP at goal (<130/80 per AHA/ACC guidelines) [x] Continue THEO-i/ARB therapy [x] Continue Statin therapy -Lifestyle Modifications: [x] Nutrition: discussed dietary modifications (Mediterranean diet) [x] Physical activity: encouraged increased activity with goal of 150min moderate exertion weekly [x] Sleep: reviewed sleep hygiene; goal of 6-8hr/night [x] Behavioral modification: pt has good social support [_] Smoking cessation (if applicable): encouraged tobacco cessation [_] Patient education: Disease management referral placed -Prevention: [x] Encouraged annual optometry evaluation [x] Encouraged annual dental evaluation [x] Annual foot examination performed: c old, weak DP/Pt pulses, decresed sensation, hair loss Follow Up: annually Ordered: metFORMIN(MetFORMIN (Eqv-Fortamet) 500 mg oral tablet, extended release), 1 tab(s), Oral, Daily, # 90 tab(s), 3 total refill(s), Maintenance, 1 tab(s) Oral Daily, Pharmacy: [facility] [Not filled] 4. H LD - Hyperlipidemia Acute, u ncontrolled -Statin therpay indicated: Yes -LDL goal: <100 (high risk) - Continue s tatin therapy: a torvastatin 40mg daily - Labs: [x] then annually - Cardiovascular: [x] BP at goal (<130/80 per AHA/ACC guidelines) - Lifestyle Modifications: [x] Nutrition: discussed dietary modifications (Mediterranean diet) [x] Physical activity: encouraged increased activity with goal of 150min moderate exertion weekly [x] Sleep: reviewed sleep hygiene; goal of 6-8hr/night [x] Behavioral modification: pt has good social support [_] Smoking cessation (if applicable): encouraged tobacco cessation [_] Patient education: Disease management referral placed Ordered: atorvastatin(atorvastatin 40 mg oral tablet), 1 tab(s), Oral, Daily, Take on tab daily for cholesterol, # 90 tab(s), 3 total refill(s), Maintenance, 1 tab(s) Oral Daily,Instr:Take on tab daily for cholesterol, Pharmacy: [facility] [Not filled] 5. D epression screening negative - See plan above 6. P atient advised about exercise - See plan above 7. E ncounter for screening for malignant neoplasm of prostate - See plan above Orders: rivaroxaban(rivaroxaban 20 mg oral tablet), 1 tab(s), Oral, every evening, with evening meal, # 90 tab(s), 3 total refill(s), Maintenance, with evening meal, 1 tab(s) Oral every evening,Instr:with evening meal, Pharmacy: [facility] [Not filled] Patient understood, relayed back, and agreed with the plan. Patient aware to call 911 or go to the nearest emergency room/urgent care for any urgent/emergent concerns or call and leave message with the clinic for any other concerns. Patient can also access Plastyc at [email or web address] to leave message with PCM Team. //SIGNED// Capt Otilio Solorio DO Hand Dry Cleaner Physician, PGY-[address] [place] [address], [facility] [place] This note was dictated using Panna dictation software. While it was proofread for errors, there may still be grammatical and dictation errors. Addendum by BHAVIK MORFIN MD on April 26, 2024 15:31:07 BANDMILL OPERATOR I certify that I was present for case discussion in the Family Medicine preceptor room at the time of this encounter. I have reviewed the note and agree with the findings, assessment, and plan except as I have documented below. Follow up as listed. All labs/imaging/consults to be followed by the ordering provider. Bhavik Morfin MD, [facility] Family Medicine and Obstetrics Faculty Physician [address] [place] [address], [facility] [place], [place] Extracted from:Title: Family Medicine - Adult Well Visit Author: JACKY DEAL DO Date: 02/03/23 1. W ell adult Preventative medicine visit with no emergent concerns. Recommendations listed below: ---- CARDIOVASCULAR RISK ASSESSMENT: -Hypertension screening: performed; BP a t goal p er J NC-8 g uidelines ---- VACCINES: - Advised annual flu vaccine ----- METABOLIC: - L ipid screening: U TD [x] ordered - D M screening: U TD [x] Hgb A1c ordered ---- CANCER SCREENING: - P rostate Cancer Screening: N /A [x] pt requests PSA level ordered - C olon Cancer Screening: U TD [_] age > 4 5 per USPSTF DIETS: -Mediterranean: Discussed that the Mediterranean diet consists of a diet high in fruits, vegetables, whole grains, etc. Mediterranean diet has been associated with decreased incidence of stroke and CVD. Handout was provided on the Mediterranean diet for patient to review at home. ----- OTHER: - Discussed wearing safety belts, helmets (if motorcycle rider), sunscreen, smoke detectors in home - Placed referral to nutrition for further education on balanced diet ----- FOLLOW UP: - Annually Ordered: Albumin, Random Ur [id number] Basic Metabolic Panel CBC w/ Diff Creatinine, Urine Lipid Panel Prostate Specific Antigen 2. H TN - Hypertension Will obtain BMP to asses kidney function 3. P rediabetes HgbA1c ordered. Will report results to patient. 4. P eripheral neuropathy Chronic. Significantly improved with B12 supplementation. Will obtain B12/Folate level as well as CBC to assess for potential alternative etiologies. Ordered: Vit B12 and Folate [id number] Orders: metFORMIN(MetFORMIN (Eqv-Fortamet) 500 mg oral tablet, extended release), 1 tab(s), Oral, Daily, # 90 EA, 3 total refill(s), Maintenance, 1 tab(s) Oral Daily, Pharmacy: [facility] [Not filled] Jacky Deal DO, Maj, [employer] Hand Dry Cleaner [facility] , [place] [employer] Addendum by MILTON SIN MD on February 03, 2023 15:38:36 CDT On the day of encounter, I was available for discussion with the resident physician. Case was discussed with me in the Teach Room. I agree with the assessment and plan of care as documented above with any exceptions/additions noted below if necessary. All labs/rads/consults to be followed by the ordering provider. DO Thony Colvin [employer], Family Medicine Physician Future Scheduled TestsLaboratoryPT and INR 06/15/24 10/02/2024 Unknown Organization Functional Status Combined list of recent functional and cognitive assessments recorded at [facility] [employer] [facility] [employer] [facility] Functional [place] Measurement (FIM) Scale: 1 = Total Assistance (Subject = 0% +), 2 = Maximal Assistance (Subject = 25% +), 3 = Moderate Assistance (Subject = 50% +), 4 = Minimal Assistance (Subject = 75% +), 5 = Supervision, 6 = Modified [place] (Device), 7 = Complete [place] (Timely, Safely). Assessment Date/Time Source Assessment Type Assessment Skill Assessment Score Assessment Details No data available for this section
--- OUTSIDE RECORDS SUMMARY | 2024-10-02 10:03 | XMS_ITS | Encounter Summary ---
Author Organization [facility] Address [address] [place] [id number] Care Team Providers Care Traffic Counter Name Role Phone Dorota Cali MD Primary Care Provider [phone] Encounter Details Date Type Department Care Team (Late Contact Info) Description 2021 [employer] Message Enc [facility] - [facility] [address], [address] [place] [address] [employer], [facility] Provider Results Social History Tobacco Use Types [...] Description 10/15/2024 8:40 AM CDT Office Visit [facility] [address], [address] [place] [address] Lai Scott MD [address] [place] [address] documented as of this encounter Visit Diagnoses Not on filedocumented in this encounter Care Teams Traffic Counter Relationship Specialty Start Date End Date Dorota Cali MD PCP - General FAMILY PRACTICE 08/25/21 documented as of this encounter
== END 2024-10-02 09:29 | disposition home or self-care (01) ==
PROVIDERS: Visit Provider Internal Medicine Cardiovascular Disease
DX: I73.9 Peripheral vascular disease, unspecified (principal)
CPT/HCPCS: 93923